=== PATIENT | female | born 1990 | race Caucasian/White ===

== ENCOUNTER 2018-05-31 17:24 | Emergency (ER) | payer OTHER ==
[2018-05-31] MEDS ORDERED: SODIUM CHLORIDE 0.9% 1,000 ML IV ONE (19:54)
[2018-05-31 20:20] LABS: BASOPHILS # (AUTO) 0.1 10^3/uL (0.0-0.1); BASOPHILS % (AUTO) 0.6 %; EOSINOPHILS # (AUTO) 0.2 10^3/uL (0.0-0.7); EOSINOPHILS % (AUTO) 1.9 %; HGB - HEMOGLOBIN 16.1 g/dL (12.0-16.0); LYMPHOCYTES # (AUTO) 3.6 10^3/uL (1.5-3.5); LYMPHOCYTES % (AUTO) 32.9 %; MEAN CORPUSCULAR HEMOGLOBIN 28.3 pg (27.0-31.0); MEAN CORPUSCULAR VOLUME 85.6 fL (81.0-99.0); MEAN PLATELET VOLUME 9.5 fL (7.9-10.8); MONOCYTES % (AUTO) 9.1 %; NEUTROPHILS # (AUTO) 6.1 10^3/uL (1.5-6.6); NEUTROPHILS % (AUTO) 55.5 %; PLT - PLATELET COUNT 215 10^3/uL (130-450); RED BLOOD COUNT 5.68 10^6/uL (4.20-5.40); RED CELL DISTRIBUTION WIDTH 14.3 % (12.0-15.0)
[2018-05-31 20:37] LABS: ALBUMIN 4.5 g/dL (3.2-5.5); ALBUMIN/GLOBULIN RATIO 1.2 (1.0-2.2); BILIRUBIN,TOTAL 0.6 mg/dL (0.2-1.0); CALCIUM 9.5 mg/dL (8.5-10.3); CREATININE 0.7 mg/dL (0.4-1.0); TOTAL PROTEIN 8.3 g/dL (6.7-8.2)
[2018-05-31 21:23] VITALS: BP 103/70
--- NOTE | 2018-05-31 22:33 | ED Physician Documentation ---
History of Present Illness - Stated complaint Stated Complaint: DIZZINESS/LIGHTHEADED - Chief complaint Chief Complaint: Neuro - Additonal information Additional information: 27-year-old female presents the emergency department with 1 day of feeling lightheaded and near syncopal with changes of position. The patient denies any palpitations or chest pain. While in the emergency department the patient did have another near syncopal episode. The patient denies any new trauma. The patient denies abdominal pain, dysuria or vaginal bleeding. No other associated symptoms. No specific triggering factors. Symptoms are described as moderate Review of Systems Constitutional: reports: Fatigue. denies: Fever Eyes: denies: Loss of vision, Discharge Ears: denies: Ear pain Nose: denies: Congestion Throat: denies: Sore throat Cardiac: denies: Chest pain / pressure, Palpitations Respiratory: denies: Hemoptysis GI: denies: Nausea : denies: Dysuria Skin: denies: Rash Musculoskeletal: denies: Neck pain Neurologic: reports: Near syncope Immunocompromised: denies: Chemotherapy PD PAST MEDICAL HISTORY - Past Medical History Past Medical History: Yes Other Past Medical History: seasonal allergies - Past Surgical History Past Surgical History: No - Present Medications Home Medications: Ambulatory Orders Medication Instructions Recorded Confirmed Fluticasone Furoate [Flonase 9.9 ml NS DAILY 05/31/18 05/31/18 Sensimist] - Allergies Allergies/Adverse Reactions: Allergies Allergy/AdvReac Type Severity Reaction Status Date / Time No Known Drug Allergies Allergy Verified 05/31/18 17:35 - Social History Does the pt smoke?: No Smoking Status: Never smoker Does the pt drink ETOH?: Yes Does the pt have substance abuse?: No - Immunizations Immunizations are current?: Yes PD ED PE NORMAL - General General: Alert and oriented X 3, No acute distress - HEENT HEENT: Atraumatic, PERRL, EOMI, Ears normal - Neck Neck: Supple, no meningeal sign, No bruit - Cardiac Cardiac: RRR, Strong equal pulses - Respiratory Respiratory: No respiratory distress - Abdomen Abdomen: Soft, Non tender - Back Back: No CVA TTP - Derm Derm: Normal color - Extremities Extremities: No deformity - Neuro Neuro: Alert and oriented X 3, Normal speech - Psych Psych: Normal mood Results - Vitals Vitals: Vital Signs - 24 hr 05/31/18 05/31/1819 17:33 19:04 19:54 Temperature 36.7 C 36.5 C Heart Rate 80 76 Respiratory 18 18 17 Rate Blood Pressure 152/80 H 129/77 O2 Saturation 99 100 05/31/18 05/31/18 05/31/18 20:17 20:46 21:22 Temperature Heart Rate 61 76 81 Respiratory 16 18 7 L Rate Blood Pressure 102/72 112/81 H 103/70 O2 Saturation 99 100 100 05/31/18 22:23 Temperature Heart Rate Respiratory 17 Rate Blood Pressure O2 Saturation Oxygen O2 Source Room air - EKG (time done) 2028 Rhythm: NSR Crawley: Normal Intervals: Normal [place] QRS: Normal Ischemia: Normal ST segments - Labs Labs: Laboratory Tests 05/31/18 05/31/18 05/31/18 20:06 20:06 20:06 WBC 11.0 H RBC 5.68 H Hgb 16.1 H Hct 48.6 H MCV 85.6 MCH 28.3 MCHC 33.0 RDW 14.3 Plt Count 215 MPV 9.5 Neut # (Auto) 6.1 Lymph # (Auto) 3.6 H Alexander # (Auto) 1.0 Eos # (Auto) 0.2 Baso # (Auto) 0.1 Absolute Nucleated RBC 0.00 Nucleated RBC % 0.0 Sodium 134 L Potassium 3.9 Chloride 98 L Carbon Dioxide 25 Anion Gap 11.0 BUN 12 Creatinine 0.7 Estimated GFR (MDRD) 101 Glucose 96 Calcium 9.5 Total Bilirubin 0.6 AST 25 ALT 30 Alkaline Phosphatase 71 Total Protein 8.3 H Albumin 4.5 Globulin 3.8 Albumin/Globulin Ratio 1.2 Lipase 38 HCG, Quant < 0.60 PD MEDICAL DECISION MAKING - ED course ED course: The patient's workup does not reveal a clear etiology for the source of her symptoms. Presently, the patient appears appropriate for discharge and ongoing outpatient management. I recommended close follow-up with primary care for an outpatient echocardiogram and Holter monitor. I discussed warning signs and recommended returning for any worsening or any concerns. Departure - Departure Disposition: 01 Home, Self Care Clinical Impression: Syncope Qualifiers: Syncope type: unspecified Qualified Code(s): R55 - Syncope and collapse Condition: Good Instructions: ED Dizziness UKO, ED Near Syncope Unkn Follow-Up: ANGEL Lowry [Provider Group] - Within 1 week (Please follow-up with primary care for reevaluation. Please ask your primary care to arrange for an outpatient Holter monitor and echocardiogram.) Comments: Please return for any worsening or any concerns
== END 2018-05-31 22:55 | disposition home or self-care (01) ==
LOC: ED 17:24 → MERGE 17:24 → ED 19:55
DX: R55 Syncope and collapse (principal)
CPT/HCPCS: 36415; 80053; 83690; 84702; 85025; 93005; 96360; 99284